=== PATIENT | female | born 1970 | race Caucasian/White ===

== ENCOUNTER 2024-08-23 08:52 | Outpatient (CLI) | payer OTHER, SELFPAY ==
--- NOTE | 2024-08-23 09:03 | ECHOCS_ITS ---
Reason For Study: Central Sleep Apnea Procedure This was a 2D Doppler, Color Flow transthoracic echocardiogram. RV Strain Analysis performed. The study was technically difficult. Contrast injection was performed. Exam performed in department. Left Ventricle Normal LV size. Left ventricular systolic function is normal. The left ventricular ejection fraction is 60 %. Stage 1 diastolic dysfunction. No regional wall motion abnormalities noted. Right Ventricle Normal RV size. Normal systolic function. Atria Normal left atrium. Normal right atrium. Mitral Valve Normal mitral valve. Tricuspid Valve Normal tricuspid valve. Mild tricuspid valve insufficiency. Right ventricular systolic pressure estimated to be 25 mmHg. Aortic Valve Trisinus/trileaflet aortic valve. Pulmonic Valve Normal pulmonic valve. Great Vessels Normal aortic root. The pulmonary artery is normal size. Inferior vena cava collapse with respiration. Pericardium/Pleural No pericardial effusion. Medication 22 gauge I.V. with prn adaptor inserted into left arm. Diluted definity 2.5ml given slow IV push to enhance endocardial definition. MMode/2D Measurements & Calculations LVIDd: 4.5 cm IVSd: 0.87 cm Ao root diam: 3.1 cm LVIDs: 3.4 cm LVPWd: 0.75 cm RVDd: 3.3 cm FS: 24.5 % LAV(MOD-bp): 42.1 ml LVAd ap4: 33.3 cm2 SV(MOD-sp4): 59.8 ml LAV(MOD-bp) Indexed: 21.0 ml/m2 LVLd ap4: 8.7 cm SI(MOD-sp4): 29.8 ml/m2 LAV(MOD-sp2): 30.8 ml EDV(MOD-sp4): 105.6 ml LAV(MOD-sp4): 45.9 ml EDV(sp4-el): 108.7 ml LVAs ap4: 19.6 cm2 LVLs ap4: 7.1 cm ESV(MOD-sp4): 45.9 ml ESV(sp4-el): 45.7 ml EF(MOD-sp4): 56.6 % EF(sp4-el): 58.0 % SV(sp4-el): 63.0 ml LA A4 area: 18.5 cm2 LA dimension(2D): 3.6 cm RA A4 area: 16.2 cm2 TAPSE: 1.4 cm Time Measurements MV dec time: 0.21 sec Doppler Measurements & Calculations MV E max axel: 81.9 cm/sec Lat Peak E' Axel: 14.3 cm/sec Med Peak E' Axel: 10.7 cm/sec MV A max axel: 91.1 cm/sec E/E' lat: 5.7 E/E' med: 7.7 MV E/A: 0.90 MV V2 max: 107.1 cm/sec MV P1/2t max axel: 107.1 cm/sec Ao V2 max: 149.0 cm/sec MV max P.6 mmHg MV P1/2t: 73.6 msec Ao max P.9 mmHg MV V2 mean: 55.9 cm/sec MV dec slope: 426.4 cm/sec2 Ao V2 mean: 100.5 cm/sec MV mean P.5 mmHg MVA(P1/2t): 3.0 cm2 Ao mean P.7 mmHg MV V2 VTI: 32.3 cm Ao V2 VTI: 34.2 cm AV (velocity ratio): 0.85 LV V1 max: 128.1 cm/sec PA V2 max: 99.9 cm/sec TR max axel: 233.5 cm/sec LV V1 max P.6 mmHg TR max P.8 mmHg LV V1 mean P.6 mmHg LV V1 mean: 71.9 cm/sec LV V1 VTI: 28.9 cm ECHO/Echo Complete W/ Contrast Interpretation Summary Normal LV size. Left ventricular systolic function is normal. The left ventricular ejection fraction is 60 %. Stage 1 diastolic dysfunction. Right ventricular systolic pressure estimated to be 25 mmHg. Contrast injection was performed. Ordering Physician: Nathan Rogers V Referring Physician: Nathan Rogers V Performed By: Ricky Swan RCS
== END 2024-08-23 23:59 | disposition home or self-care (01) ==
PROVIDERS: PCP Family Medicine; Referring Provider Internal Medicine Pulmonary Disease; Visit Provider Internal Medicine Pulmonary Disease
DX: I36.1 Nonrheumatic tricuspid (valve) insufficiency (principal); G47.37 Central sleep apnea in conditions classified elsewhere
CPT/HCPCS: 93306; Q9957; A4216; C8929